=== PATIENT | female | born 1985 | race Caucasian/White ===

== ENCOUNTER 2017-03-26 22:58 | Emergency (ER) | payer OTHER ==
[~2017-03-26] VITALS: Ht 154.9 cm; Wt 50.0 kg
[~2017-03-26 22:58] MED LIST: IBUP600 PO; METO25 PO
[2017-03-26 23:01] VITALS: BP 127/74; PULSE 85; RESP 16; TEMP 97.3; O2SAT 98
[2017-03-27] MEDS ORDERED: TETANUS/DIPHTHERIA TOXOID ADULT 0.5 ML VIAL IM ONE (00:45)
--- NOTE | 2017-03-27 00:45 | PD ---
HPI Chief Complaint: Medical Clearance Time Seen by Provider: 00:20 Travel History International Travel<30 days: No Contact w/Intl Traveler<30days: No Traveled to known affect area: No History of Present Illness HPI 31-year-old female here for possible needle stick exposure. 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. She reports that as she was caring for patient she actually hit her right index finger MCP joint against the railing. She was having some pain from that. She then provided the patient with a insulin injection. Afterwards when she was washing her hand she had a burning sensation on the skin of her right index finger MCP joint which concerned her for possible needle stick. She does not know if the burning sensation was from injuring her skin by hitting her joint against a railing, she does not actually recall injecting herself with a needle however she reports that she was very busy and could have accidentally done so. The source patient has no known history of hepatitis or HIV however he does have a history of IV drug abuse according to the patient. Her last tetanus vaccination is unknown. No other complaints. PFSH Past Medical History Asthma: Yes (as a child) Blood Disorders: No Anxiety: Yes Depression: No Heart Rhythm Problems: Yes (tachycardia) Cancer: No Cardiovascular Problems: Yes High Cholesterol: Yes Chemotherapy: No Chest Pain: Yes Congestive Heart Failure: No COPD: No Diabetes: No Endocrine: No Genitourinary: No Immune Disorder: No Musculoskeletal: No Neurologic: No Psychiatric: Yes Reproductive: No Respiratory: Yes Radiation Therapy: No Sleep Apnea: No Thyroid Disease: No Influenza Vaccination: Yes ?: Not LMP: 03/05/17 : 1 Para: 1 Past Surgical History Oral Surgery: Yes (WISODM) Social History Alcohol Use: No Tobacco Use: No Substance Use: No Allergies-Medications (Allergen,Severity, Reaction): Coded Allergies: acetaminophen (Unverified Allergy, Severe, 03/19/17) amoxicillin (Unverified Allergy, Severe, 03/19/17) oxycodone (Unverified Allergy, Severe, 03/19/17) zolpidem (Unverified Allergy, Severe, 03/19/17) Reported Meds & Prescriptions Reported Meds & Active Scripts Active No Active Prescriptions or Reported Medications Review of Systems Except as stated in HPI: all other systems reviewed are Neg Physical Exam Narrative GENERAL: Well-developed well-nourished female in no acute distress SKIN: Warm and dry. Superficial wound on the right index finger MCP joint. HEAD: Atraumatic. Normocephalic. CARDIOVASCULAR: Regular rate and rhythm. No murmur appreciated. RESPIRATORY: No accessory muscle use. Clear to auscultation. Breath sounds equal bilaterally. Data Data Last Documented VS Vital Signs Date Time Temp Pulse Resp B/P (MAP) Pulse Ox O2 Delivery O2 Flow Rate FiO2 03/26/17 23:01 97.3 85 16 127/74 (91) 98 Orders Orders Tetanus/Diphtheria Tox Adult (Tetanus/Di (03/27/17 00:45) MDM Medical Decision Making Medical Screen Exam Complete: Yes Emergency Medical Condition: Yes Medical Record Reviewed: Yes Differential Diagnosis Puncture wound, abrasion, HIV exposure, hepatitis exposure Narrative Course 31-year-old female presents after a possible needle stick while working on the [email or web address] prior to arrival. Post exposure protocol has been followed. The source patient's blood has been sent for testing and has not yet resulted. Tetanus status will be updated. The patient will follow-up with employee med. Diagnosis Primary Impression: Needle stick injury Referrals: Employ Med Med/Other Pt SpecificInfo: No Change to Meds Scripts No Active Prescriptions or Reported Meds Disposition: DISCHARGE HOME Condition: Stable Justino Moran Mar 27, 2017 00:45
== END 2017-03-27 01:16 | disposition home or self-care (01) ==
LOC: NEPK 22:58
DX: Z77.21 Contact with and (suspected) exposure to potentially hazardous body fluids (principal); W46.1XXA Contact with contaminated hypodermic needle, initial encounter; Y93.F9 Activity, other caregiving; Y92.238 Other place in hospital as the place of occurrence of the external cause; Y99.0 Civilian activity done for income or pay; Z23 Encounter for immunization
CPT/HCPCS: 90471; 90714